=== PATIENT | female | born 1980 | race Caucasian/White ===

== ENCOUNTER 2019-11-20 10:07 | Emergency (ER) | payer OTHER ==
[~2019-11-20] VITALS: Ht 180.3 cm; Wt 98.4 kg
[~2019-11-20 10:07] MED LIST: BACTRIM DS TAB1 EACH PO; CIPROFLOXACIN500 M3 OR; NORCO 5-325 TA1 EACH PO; PYRIDIUM200 MG PO
[2019-11-20 10:51] LABS: ABSOLUTE BASOPHILS 0.1 thou/uL (0.0-0.2); ABSOLUTE LYMPHOCYTES 2.9 thou/uL (0.8-5.3); ABSOLUTE MONOCYTES 0.5 thou/uL (0.0-1.2); ABSOLUTE NEUTROPHILS 2.7 thou/uL (1.6-8.1); BASOPHILS 1.5 %; EOSINOPHILS 0.5 %; HEMATOCRIT 43.1 % (37.0-47.0); HEMOGLOBIN 15.2 gm/dL (12.0-15.0); LYMPHOCYTES 46.4 %; MCH 32.2 pg (26.0-34.0); MCHC 35.4 g/dL (28.0-37.0); NUCLEATED RBCS 0 /100WBC; PLATELET COUNT* 239 thou/uL (150-400); POLYS 43.6 %; RBC 4.74 mil/uL (4.20-5.00); WBC 6.3 thou/uL (4.0-11.0)
[2019-11-20 10:53] LABS: URINE BLOOD 1+ (Negative); URINE CLARITY CLEAR; URINE COLOR YELLOW; URINE GLUCOSE-RANDOM NEGATIVE (Negative); URINE KETONES NEGATIVE (Negative); URINE LEUKOCYTES-REFLEX NEGATIVE (Negative); URINE NITRITE-REFLEX NEGATIVE (Negative); URINE PROTEIN NEGATIVE (Negative); URINE SPECIFIC GRAVITY >= 1.030 (1.005-1.030); URINE UROBILINOGEN 0.2 E.U./dl (0.2-1.0)
[2019-11-20 11:06] LABS: CALCIUM 8.9 mg/dL (8.5-10.1); CREATININE 0.7 mg/dL (0.6-1.3); POTASSIUM 4.3 mmol/L (3.5-5.1)
[2019-11-20 11:08] LABS: CASTS None Seen /LPF (None Seen); CRYSTALS None Seen /LPF (None Seen); ICTOTEST (BILI CONFIRMATORY) Negative (Negative); SQUAMOUS 0-3 Few /LPF (0-3); URINE BILIRUBIN 1+ (Negative); URINE RBC 0-2 Rare /HPF (0-2); URINE WBC-REFLEX 0-5 Rare /HPF (0-5)
[2019-11-20 11:11] LABS: ALBUMIN 4.3 g/dL (3.4-5.0); APTT 29.1 Seconds (25.0-31.3); INR 1.1; PROTIME 10.9 Seconds (9.20-11.50); TOTAL BILIRUBIN 0.5 mg/dL (<0.1-1.0); TOTAL PROTEIN 7.8 g/dL (6.4-8.2)
[2019-11-20 12:00] VITALS: BP 126/86
--- NOTE | 2019-11-21 10:10 | EKG ---
[place] [address] ELECTROCARDIOGRAM REPORT Name: BON,MINISTERIO Ishmael Room: [facility]#: [id number] Admission: 11/20/19 Attend Phys: Discharge: 11/20/19 Date of : 76 Date of Service: 11/20/19 1028 Report #: [id number] THIS REPORT FOR: //name// [facility] ED Test Date: 2019-11-20 Test Time: 10:28:29 Pat Name: MINISTERIO CROCKETT Department: Room: Gender: F [employer] Developer: [facility] : 1980 Requested By: Shin Guevara Order Number: [id number] MD: Frankie Ferrell Measurements Intervals [place] Rate: 73 P: 18 MD: 150 QRS: 24 QRSD: 89 T: 30 QT: 382 QTc: 421 Interpretive Statements Sinus rhythm No previous ECG available for comparison Electronically Signed On 11-21-2019 10:08:51 CDT by Frankie Ferrell [email or web address] <ELECTRONICALLY SIGNED> By: Frankie Ferrell MD, [facility] 11/21/19 1008 1028 1028 Frankie Ferrell MD, FACC /EPI
== END 2019-11-20 12:00 | disposition home or self-care (01) ==
LOC: M.ERS 10:07
PROVIDERS: Family Medicine
DX: R42 Dizziness and giddiness (principal); F17.210 Nicotine dependence, cigarettes, uncomplicated; E05.90 Thyrotoxicosis, unspecified without thyrotoxic crisis or storm; Z90.49 Acquired absence of other specified parts of digestive tract

== ENCOUNTER 2020-09-08 07:57 | Emergency (ER) | payer OTHER ==
[~2020-09-08] VITALS: Ht 180.3 cm; Wt 93.4 kg
[2020-09-08] MEDS ORDERED: SUPER THERAVIT1 EACH PO (08:07)
[2020-09-08] MEDS ORDERED: HYDROCODON-ACE1 EAC7 PO (08:46)
[2020-09-08 09:02] VITALS: BP 140/73
== END 2020-09-08 09:02 | disposition home or self-care (01) ==
LOC: M.ERS 07:57
DX: S93.491A Sprain of other ligament of right ankle, initial encounter (principal); E03.9 Hypothyroidism, unspecified; Z90.49 Acquired absence of other specified parts of digestive tract; W10.8XXA Fall (on) (from) other stairs and steps, initial encounter; Y93.89 Activity, other specified; Y92.89 Other specified places as the place of occurrence of the external cause; Y99.8 Other external cause status

== ENCOUNTER 2021-06-30 09:59 | Emergency (ER) | payer OTHER ==
[~2021-06-30] VITALS: Ht 180.3 cm; Wt 95.3 kg
[~2021-06-30 09:59] MED LIST changes: +HYDROCODON-ACE1 EAC7 PO; +SUPER THERAVIT1 EACH PO
[2021-06-30] MEDS ORDERED: DECADRON4 MG PO (16:05)
[2021-06-30 16:06] LABS: INFLUENZA A ANTIGEN Negative (Negative); INFLUENZA B ANTIGEN Negative (Negative)
[2021-06-30 16:23] VITALS: BP 139/87
--- NOTE | 2021-07-01 09:16 | EKG ---
[place] [address] ELECTROCARDIOGRAM REPORT Name: BONMINISTERIO Ishmael Room: [facility] [place]#: [id number] Admission: 06/30/21 Attend Phys: Discharge: 06/30/21 Date of : 76 Date of Service: 06/30/21 1011 Report #: [id number] THIS REPORT FOR: //name// [facility] ED Test Date: 2021-06-30 Test Time: 10:11:01 Pat Name: MINISTERIO CROCKETT Department: Room: Gender: [employer]: : 1980 Requested By: Chuckie Sorto Order Number: [id number] MD: West Brown Measurements Intervals [place] Rate: 79 P: 72 AR: 138 QRS: 83 QRSD: 91 T: 29 QT: 376 QTc: 432 Interpretive Statements Sinus rhythm Compared to ECG 11/20/2019 10:28:29 No significant changes Electronically Signed On 07-01-2021 9:16:21 DIRECTOR OF BROADCAST by West Brown [email or web address] <ELECTRONICALLY SIGNED> By: West Brown MD, [facility] 07/01/21 0916 101 10 West Brown MD, FAC /EPI
== END 2021-06-30 16:23 | disposition home or self-care (01) ==
LOC: M.ERS 09:59
PROVIDERS: Emergency Medicine
DX: U07.1 COVID-19 (principal); Z90.49 Acquired absence of other specified parts of digestive tract; Z79.899 Other long term (current) drug therapy